=== PATIENT | male | born 1955 | race Caucasian/White ===

== ENCOUNTER 2020-09-16 23:50 | Emergency (ER) | payer OTHER ==
[~2020-09-16] VITALS: Ht 182.9 cm; Wt 81.0 kg
[2020-09-17] MEDS ORDERED: ONDANSETRON PF 4 MG/2 ML VIAL. IVP ONE ×2 (00:15→02:45)
[2020-09-17] MEDS ORDERED: IV RINGERS SOLUTION,LACTATED 1,000 ML IV SCH (00:15)
--- NOTE | 2020-09-17 00:37 | PHYS DOC ---
Past History Past Medical History: Cancer Past Surgical History: Other Additional Past Surgical Histo: PORT PLACEMENT General Adult EDM: Chief Complaint: NAUSEA/VOMITING/DIARRHEA HPI: HPI: ".. I had some severe vomiting.. I tried zofran and compazine at home... I call my cancer clinic at .. they said to come here.. " Patient is a 64 year old male who presents with above hx and complaints of nausea and vomiting. Pt. currently under chemo therapy at for his esophageal cancer. Pt. main complaints is intractable nausea and vomiting. Some epigastric pain. No hx of bad food intake,. No specific ill contacts. Pt. had not travel. Pt. Follows with Dr. Pretty locally and Dr. Harper at for oncology. Review of Systems: Review of Systems: Constitutional: Denies fever or chills Eyes: Denies change in visual acuity HENT: Denies nasal congestion or sore throat Respiratory: Denies cough or shortness of breath Cardiovascular: Denies chest pain or edema GI:Complaints of abdominal pain, nausea, vomiting. Denies, bloody stools or diarrhea : Denies dysuria Musculoskeletal: Denies back pain or joint pain Integument: Denies rash Neurologic: Denies headache, focal weakness or sensory changes Endocrine: Denies polyuria or polydipsia Lymphatic: Denies swollen glands Psychiatric: Denies depression or anxiety Family History: Family History: Noncontributory to presentation Current Medications: Current Meds: See nursing for home meds Current Medications Medications (Trade) Dose Ordered Sig/Claudine Start Time Stop Time Status Last Admin Dose Admin Lactated Ringer's 1,000 ml @ 1,000 mls/hr Q1H 09/17/20 00:15 09/17/20 01:14 UNV Ondansetron HCl (Zofran) 8 mg 1X ONCE 09/17/20 00:15 09/17/20 00:16 UNV Allergies: Allergies: See nursing Physical Exam: PE: Constitutional: moderate acute distress, non-toxic appearance. [] HENT: Normocephalic, atraumatic, bilateral external ears normal, oropharynx dry, no oral exudates, nose normal. [] Eyes: PERRLA, EOMI, conjunctiva normal, no discharge. Masses Neck: Normal range of motion, no tenderness, supple, no stridor. [] Cardiovascular:Heart rate regular rhythm, no murmur [] Lungs & Thorax: Bilateral breath sounds equal apex auscultation [] Abdomen: Bowel sounds normal, soft, epigastric tenderness, no masses, no pulsatile masses. Gastric feeding tube. Old surgery scars. Skin: Warm, dry, no erythema, no rash. [] Back: No tenderness, no CVA tenderness. [] Extremities: No tenderness, no cyanosis, no clubbing, ROM intact, no edema. [] Neurologic: Alert and oriented X 3, normal motor function, normal sensory function, no focal deficits noted. [] Psychologic: Affect anxious, judgement normal, mood normal. [] Current Patient Data: Vital Signs: Vital Signs Date Time Temp Pulse Resp B/P (MAP) Pulse Ox O2 Delivery O2 Flow Rate FiO2 09/17/20 00:20 98.9 118 20 110/79 96 Room Air EKG: EKG: My interpretation EKG shows a sinus tachycardia 109 bpm. Does have demonstratable PVCs. No findings of acute STEMI with contralateral changes. [] Radiology/Procedures: Radiology/Procedures: [][place] [address] IMAGING REPORT Signed PATIENT: KATLIN DIMAS ACCOUNT: [id number] : 1955 LOCATION: ER AGE: 64 SEX: M EXAM STATUS: REG ER ORD. PHYSICIAN: STEPHANIE REED MD REASON: nausea, vomiting, esophageal cancer PROCEDURE: ACUTE ABDOMEN SERIES XR ABDOMEN COMP ACUTE INDICATION: Reason: nausea, vomiting, esophageal cancer / Spl. Instructions: / History: . COMPARISON STUDY: None. FINDINGS: Right Port-A-Cath. Lungs: Normal lung volume. No pulmonary mass or consolidation. The tracheobronchial tree and hilar structures are normal. Pleura: No pleural effusion or pneumothorax. Heart and Mediastinum: The cardiomediastinal silhouette is normal. The great vessels of the thorax are normal. Abdomen: Nonobstructive bowel gas pattern. No free air. IMPRESSION: 1. Nonobstructive bowel gas pattern. 2. No focal airspace disease. Electronically signed by: Vazquez Chairez MD (09/17/2020 2:16 AM) [facility] DICTATED AND SIGNED BY: VAZQUEZ CHAIREZ MD DATE: 09/17/204 CC: STEPHANIE REED MD; GARDENIA NORWOOD MD ~MTH0 0 Heart Score: C/O Chest Pain: N/A HEART Score for Chest Pain: HEART Score for Chest Pain Response (Comments) Value History Moderately Suspicious 1 ECG Nonspecific Repolarizatio 1 Age >45 - < 65 1 Risk Factors 1 or 2 Risk Factors 1 Troponin < Normal Limit 0 Total 4 Risk Factors: Risk Factors: DM, Current or recent (<one month) smoker, HTN, HLP, family history of CAD, obesity. Risk Scores: Score 0 - 3: 2.5% MACE over next 6 weeks - Discharge Home Score 4 - 6: 20.3% MACE over next 6 weeks - Admit for Clinical Observation Score 7 - 10: 72.7% MACE over next 6 weeks - Early Invasive Strategies Course & Med Decision Making: Course & Med Decision Making Pertinent Labs and Imaging studies reviewed. (See chart for details) Patient received IV fluids and Zofran IV with resolution of his vomiting. Patient reported marked improvement of his overall symptoms. Patient to keep follow-up at cancer clinic. Call in the morning for possible alternate meds for controlling of his nausea and vomiting with his chemotherapy. Patient return if any concerns. Impression; 1. Esophageal cancer 2. Dehydration 3. Currently completing chemotherapy-through 4. Elevated BUN 50 creatinine 1.4 5. Diabetes glucose 132 [] Dragon Disclaimer: Dragon Disclaimer: This electronic medical record was generated, in whole or in part, using a voice recognition dictation system. Dragon Disclaimer This chart was dictated in whole or in part using Voice Recognition software in a busy, high-work load, and often noisy Emergency Department environment. It may contain unintended and wholly unrecognized errors or omissions. STEPHANIE REED MD Sep 17, 2020 00:37
[2020-09-17 00:56] LABS: BASO % 0 % (0-3); EOS % 2 % (0-3); HEMATOCRIT 42.2 % (39.0-53.0); HEMOGLOBIN 14.3 g/dL (13.0-17.5); LYMPH # 0.4 x10^3/uL (1.0-4.8); LYMPH % 14 % (24-48); MEAN CORPUSCULAR HEMOGLOBIN 32 pg (25-35); MEAN CORPUSCULAR HGB CONC 34 g/dL (31-37); MEAN CORPUSCULAR VOLUME 93 fL (79-100); MONO # 0.5 x10^3/uL (0.0-1.1); MONO % 18 % (0-9); NEUT % 66 % (31-73); PLATELET COUNT 181 x10^3/uL (140-400); RED BLOOD COUNT 4.54 x10^6/uL (4.30-5.70); RED CELL DISTRIBUTION WIDTH 13.4 % (11.5-14.5)
[2020-09-17 01:04] LABS: CALCIUM 8.6 mg/dL (8.5-10.1); CREATININE 1.4 mg/dL (0.7-1.3)
[2020-09-17 01:19] LABS: ALBUMIN 3.5 g/dL (3.4-5.0); DIRECT BILIRUBIN 0.2 mg/dL (0.0-0.2); MAGNESIUM 2.3 mg/dL (1.8-2.4); TOTAL BILIRUBIN 0.6 mg/dL (0.2-1.0); TOTAL PROTEIN 6.7 g/dL (6.4-8.2)
[2020-09-17 01:36] LABS: BACTERIA,URINE 0 /HPF (0-FEW); BILIRUBIN,URINE NEG (NEG); CLARITY,URINE CLEAR; COLOR,URINE YELLOW; GLUCOSE,URINE NEG (NEG); NITRITE,URINE NEG (NEG); RBC,URINE 0 /HPF (0-2); SQUAMOUS EPITHELIAL CELL,UR OCC /LPF; UROBILINOGEN,URINE 0.2 mg/dL (0.2 mg/dL); WBC,URINE OCC /HPF (0-4)
--- NOTE | 2020-09-17 02:18 | RAD ---
XR ABDOMEN COMP ACUTE INDICATION: Reason: nausea, vomiting, esophageal cancer / Spl. Instructions: / History: . COMPARISON STUDY: None. FINDINGS: Right Port-A-Cath. Lungs: Normal lung volume. No pulmonary mass or consolidation. The tracheobronchial tree and hilar st ructures are normal. Pleura: No pleural effusion or pneumothorax. Heart and Mediastinum: The cardiomediastinal silhouette is normal. The great vessels of the thorax ar e normal. Abdomen: Nonobstructive bowel gas pattern. No free air. IMPRESSION: 1. Nonobstructive bowel gas pattern. 2. No focal airspace disease. Electronically signed by: Melo Chairez MD (09/17/2020 2:16 AM) [facility]
[2020-09-17 02:56] VITALS: BP 131/73
--- NOTE | 2020-09-20 13:36 | EKG ---
[address] [address] Test Date: 2020-09-17 Test Time: 00:44:22 Pat Name: KATLIN DIMAS Department: Room: Gender: M Animal Feeder: ENMANUEL : 1955 Requested By: STEPHANIE REED Order Number: [id number] Reading MD: Measurements Intervals [place] Rate: 109 P: 53 AK: 156 QRS: 57 QRSD: 74 T: 72 QT: 314 QTc: 424 Interpretive Statements SINUS TACHYCARDIA VENTRICULAR PREMATURE COMPLEX(ES) ABNORMAL ECG RI6.02 No previous ECG available for comparison
== END 2020-09-17 03:06 | disposition home or self-care (01) ==
LOC: ER 23:50
DX: E86.0 Dehydration (principal); E11.9 Type 2 diabetes mellitus without complications; C80.1 Malignant (primary) neoplasm, unspecified; C78.89 Secondary malignant neoplasm of other digestive organs
CPT/HCPCS: 36415; 74022; 80048; 80076; 81001; 82150; 82550; 83690; 83735; 83880; 84443; 84484; 85025; 93005; 96361; 96374; 96376; 99285; J2405; J7120